=== PATIENT | female | born 1945 | race Caucasian/White ===

== ENCOUNTER 2018-03-23 10:21 | Inpatient (IN) | payer OTHER ==
[~2018-03-23] VITALS: Ht 160 cm; Wt 65.3 kg
[2018-03-23 10:21] VITALS: BP_SYST 159
--- NOTE | 2018-03-23 10:21 | NUR ---
BIB sq 64. Placed in room 02. Placed on monitor and storage bin tender, blood pressure machine and pulse oximeter. To gown for exam. Side rails up.
--- NOTE | 2018-03-23 10:25 | NUR ---
Pt had syncopal episode at [facility] this morning. C/O abd pain and nausea. NS infusing to [facility] from medics. No vomiting. States that she wanted to get the dog out of the house before it got too hot because she was in bed all day yesterday and didn't take the dog out. Denies chest pain, denies shortness of breath. Denies headache.
--- NOTE | 2018-03-23 10:30 | NUR ---
Placed in room 2 . Placed on rn cardiac, blood pressure machine and pulse oximeter. To gown for exam. Side rails up.
--- NOTE | 2018-03-23 11:09 | NUR ---
ER Dr. Bains at bedside examining patient.
--- NOTE | 2018-03-23 11:27 | NUR ---
Off unit for radiology via [facility]. VSS. No acute distress. Pt given warm blanket, c/o being cold. Skin cool, dry.
--- NOTE | 2018-03-23 11:52 | NUR ---
Back from radiology, tolerated well.
--- NOTE | 2018-03-23 12:00 | NUR ---
urine sample collected and sent to lab; blood labs being drawn at bedside including BC x 2; pt apolinar; will continue to monitor
[2018-03-23 12:18] LABS: BILIRUBIN,URINE NEGATIVE (NEGATIVE); BLOOD, URINE NEGATIVE (NEGATIVE); CLARITY/URINE CLEAR (CLEAR); COLOR,URINE YELLOW (YELLOW); GLUCOSE,URINE NEGATIVE (NEGATIVE); KETONES,URINE NEGATIVE (NEGATIVE); LEUKOCYTE ESTERASE ,URINE 1+ (NEGATIVE); NITRITE, URINE NEGATIVE (NEGATIVE); PH,URINE 5.5 (5.0-8.0); PROTEIN URINE NEGATIVE (NEGATIVE); UROBILINOGEN,URINE 0.2 (0.2-1.0)
[2018-03-23 12:31] LABS: RBC,URINE 0-3 /HPF (0-3)
[2018-03-23 12:32] LABS: BACTERIA,URINE FEW /HPF (None Seen); BARBITURATE, URINE NEGATIVE (NEG <=200); BENZODIAZEPINE, URINE NEGATIVE (NEG <=150); CANNABINOID, URINE NEGATIVE (NEG <=50); COCAINE, URINE NEGATIVE (NEG <=150); METHAMPHETAMINES SCREEN,URINE NEGATIVE (NEG <=500); MUCUS,URINE None Seen /LPF (None Seen); OPIATE, URINE NEGATIVE (NEG <=100); PHENCYCLIDINE SCREEN,URINE NEGATIVE (NEG <=25); PROTHROMBIN TIME 9.9 SECS (9.5-12.5); UR TRICYCLIC ANTIDEPRESSANTS NEGATIVE (NEG <=300); URINE AMPHETAMINE NEGATIVE (NEG <=500); URINE METHADONE NEGATIVE (NEG <=200); URINE OXYCODONE SCREEN NEGATIVE (NEG <=100); URINE PROPOXYPHENE SCREEN NEGATIVE (NEG <=300); YEAST,URINE None Seen /HPF (None Seen)
[2018-03-23 12:33] LABS: ANION GAP 10 (5-15); CALCIUM 9.8 mg/dL (8.4-11.0); CHLORIDE 100 mmol/L (98-107); CREATININE 1.07 mg/dL (0.55-1.30); GLUCOSE 148 mg/dL (70-99); POTASSIUM 4.8 mmol/L (3.5-5.1); SODIUM SERUM 137 mmol/L (136-145); UREA NITROGEN, BLOOD 27 mg/dL (8-21)
[2018-03-23 12:38] LABS: ALANINE AMINOTRANSFERASE 20 U/L (12-78); ALBUMIN 3.8 g/dL (3.4-4.8); ASPARTATE AMINOTRANSFERASE 16 U/L (10-37); TOTAL BILIRUBIN 0.3 mg/dL (0.0-1.0)
[2018-03-23 13:24] LABS: HEMATOCRIT 27.7 % (36-48); HEMOGLOBIN 8.3 g/dL (12.0-16.0); MEAN CORPUSCULAR HEMOGLOBIN 18 pg (27-31); MEAN CORPUSCULAR HGB CONC 30 % (32-36); MEAN CORPUSCULAR VOLUME 61 fL (79.0-98.0); PLATELET COUNT (AUTO) 419 K/uL (130-430); RED BLOOD CELL COUNT(AUTO) 4.54 MIL/uL (4.2-6.2); WHITE BLOOD COUNT (AUTO) 11.8 K/uL (4.8-10.8)
--- NOTE | 2018-03-23 14:00 | NUR ---
Dr. Bains aware of elevated WBC and (+) leukocytes in UA; no orders at this time
[2018-03-23 14:10] LABS: BAND % (MANUAL) 1 % (0-6); EOSINOPHILS % (MANUAL) 1 % (0-7); LYMPHOCYTES % (MANUAL) 20 % (20-46); MONOCYTES % (MANUAL) 8 % (0-11)
[2018-03-23 14:11] LABS: BASOPHILS % (MANUAL) 0 % (0-2)
--- NOTE | 2018-03-23 15:00 | NUR ---
As per Dr. Bains, endorsed to Dr. Ross elevated WBC and (+) leukocytes in urine; no orders at this time; ok to transfer and admit pt to [facility]
[2018-03-23] MEDS ORDERED: INSU100V9 SUBCUT (15:06)
[2018-03-23] MEDS ORDERED: NPH,100V SUBCUT (15:06)
--- NOTE | 2018-03-23 15:15 | NUR ---
ADMISSION NOTE Received patient from ER via gurney. Patient admitted with diagnosis of anemia, cheat pain. Patient is awake, alert, oriented X 4. Patient oriented to hospital room, call light, toileting, pain management and safety-teach back done. Personal belongings checked and Belongings List documented. Call light within reach.
--- NOTE | 2018-03-23 15:20 | NUR ---
Patient will be admitted to care of Dr. Ross. Admitted to Telemetry unit. Will go to room 105A. Belongings list completed; medication reconcilliation completed. Summary report printed. Report given at bedside to JOEL Manriquez.
[2018-03-23 15:27] VITALS: BP_SYST 132
--- NOTE | 2018-03-23 16:00 | NUR ---
PT RECEIVED REPORT IS RECEIVED FROM ADMISSION NURSE AND CARE IS ENDORSED TO MYSELF. PT IS RECEIVED AWAKE, ALERT, AND ORIENTED X4. PT IS AMBULATORY AND STABLE. NO SIGNS OR SYMPTOMS OF DISTRESS OR SOB NOTED. PT DENIES ANY PAIN. VS ARE STABLE. WHITE BOARD IS UPDATED, CALL LIGHT SHOWN HOW TO USE. CURRENT NEEDS ARE MET. BED IS AT LOWEST POSITION, CALL LIGHT WITHIN REACH, THREE SIDE RAILS UP, BED ALARM IS ON. WILL CONTINUE TO MONITOR.
--- NOTE | 2018-03-23 18:48 | NUR ---
CLOSING NOTE PT IS AWAKE AND ALERT. NO SIGNS OR SYMPTOMS OF DISTRESS OR SOB NOTED. PT DENIES ANY PAIN. CURRENT NEEDS ARE MET. BED IS AT LOWEST POSITION, CALL LIGHT WITHIN REACH, THREE SIDE RAILS UP, BED ALARM IS ON. WILL CONTINUE TO MONITOR UNTIL CARE AND REPORT IS GIVEN TO SHEARER HELPER NURSE.
--- NOTE | 2018-03-23 19:30 | NUR ---
BLOOD SUGAR TAKEN ORDERED. 235MG/DL.
[2018-03-23 19:35] VITALS: BP_SYST 136
--- NOTE | 2018-03-23 20:00 | NUR ---
INITIAL NOTES: PATIENT IN BED RESTING QUITELY AND WATCHING TV SHOWS. RE INSTRUCTED ABOUT SAFETY BY USING CALL LIGHT SYSTEM. BED ALARM ON FOR SAFETY.ENDORSED WITH NO IV LINE.ASSISTED TO BATHROOM TO VOID. SINUS RHYTHM . VITAL SIGNS TAKEN AND RECORDED. WILL MONITOR CLOSELY.BED IN LOW POSITION.
[2018-03-23] MEDS: INSULIN REGULAR, HUMAN 100 UNITS/ML, 10 ML VIAL (novoLIN R) SUBCUT PRN (21:06)
--- NOTE | 2018-03-23 21:10 | NUR ---
MEDS ADMIN: LEVIMIR 12 UNITS AND REGULAR INSULIN GIVEN PER SLIDING SCALE.
--- NOTE | 2018-03-23 21:15 | NUR ---
NEW IV LINE INSERTED TO LEFT AC #22 GAUGE BY AUTOMATIC HEAD SAWYER DIDA.
--- NOTE | 2018-03-23 21:30 | NUR ---
BED ALARM ON ,PATIENT GOT UP BY HERSELF TO BATHROOM. ASSISTED THEN REMIND HER TO CALL BEFORE GETTING UP.
--- NOTE | 2018-03-23 23:30 | NUR ---
ASSISTED TO BATHROOM TO VOID. BED ALARM ON. REINSTRUCTED TO CALL USING CALL PARDO.
[2018-03-24 00:04] VITALS: BP_SYST 112
--- NOTE | 2018-03-24 00:30 | NUR ---
PATIENT SLEEPING. DENIES SOB NOR DIZZINESS. BREATHING PATTER REGULAR.
--- NOTE | 2018-03-24 01:30 | NUR ---
BLOOD SUGAR THIS TIME IS 62MG/DL. PATIENT FEELS LITTLE DIZZY. D50 IV ORDERED GIVEN . IV WITH GOOD BLOOD RETURN.
[2018-03-24] MEDS: DEXTROSE 50% JECT 50 ML DISP.SYRIN IVP PRN ×2 (01:33→06:17)
--- NOTE | 2018-03-24 02:33 | NUR ---
Blood sugar check reassessment done. Patient's blood glucose is 169 mg/dL.
--- NOTE | 2018-03-24 04:30 | NUR ---
PATIENT SLEEPING DURING ROUNDS.
--- NOTE | 2018-03-24 06:05 | NUR ---
ACCU CHECK RESULT 63MG/DL. D50 IV GIVEN AND GAVE ORANGE JUICE. INSTRUCTED TO STAY IN BED SINCE BLOOD SUGAR IS LOW.
--- NOTE | 2018-03-24 07:30 | NUR ---
Initial notes: Patient on bed awake, alert and oriented. Stable. I.V. access patent. Safety measures in placed. Call light within reach. Report received at bedside.
--- NOTE | 2018-03-24 07:35 | NUR ---
CLOSING: BLOOD SUGAR RE CHECKED 221. REPORTED TO AM RN.NO ACUTE CARDIOPULMONARY DISTRESS . CALL LIGHT HAS BEEN NEARBY.BED IN LOW POSITION. ASSISTED TO BATHROOM. BED ALARM ON.
[2018-03-24 07:48] LABS: TOTAL IRON BIND. CAPACITY 457 ug/dL (250-450)
[2018-03-24 07:57] LABS: THYROID STIMULATING HORMONE 3.05 uIu/mL (0.36-3.74)
[2018-03-24 08:00] VITALS: BP_SYST 113
--- NOTE | 2018-03-24 09:34 | NUR ---
rounds: patient sleeping. no distress noted.
--- NOTE | 2018-03-24 09:52 | NUR ---
CONSULTATION CALLED REASON FOR CONSULTATION:SYNCOPE WAS CONSULT CALLED?Y PERSON WHO WAS NOTIFIED:MORRIS CONSULTING PHYSICIAN:GURWINDER [place] [employer] SPECIALTY:[employer] PHONE NUMBER:[phone] ORDERING PHYSICIAN:JENNIFER DON
[2018-03-24 10:26] LABS: HEMOGLOBIN 7.5 g/dL (12.0-16.0); MEAN CORPUSCULAR HEMOGLOBIN 18 pg (27-31); MEAN CORPUSCULAR VOLUME 61 fL (79.0-98.0)
[2018-03-24 10:31] LABS: HEMATOCRIT 25.4 % (36-48); MEAN CORPUSCULAR HGB CONC 30 % (32-36); PLATELET COUNT (AUTO) 371 K/uL (130-430); RED BLOOD CELL COUNT(AUTO) 4.16 MIL/uL (4.2-6.2); RED CELL DISTRIBUTION WIDTH 20.6 % (9.0-15.0); WHITE BLOOD COUNT (AUTO) 9.3 K/uL (4.8-10.8)
[2018-03-24] MEDS: INSULIN REGULAR, HUMAN 100 UNITS/ML, 10 ML VIAL (novoLIN R) SUBCUT PRN (12:01)
[2018-03-24 12:52] VITALS: BP_SYST 146
--- NOTE | 2018-03-24 13:00 | NUR ---
rounds: patient on bed resting. no distress noted.
[2018-03-24 14:49] LABS: ATYPICAL LYMPHOCYTES % 0 % (0-0); BAND % (MANUAL) 2 % (0-6); BASOPHILS % (MANUAL) 1 % (0-2); EOSINOPHILS % (MANUAL) 3 % (0-7); LYMPHOCYTES % (MANUAL) 14 % (20-46); MONOCYTES % (MANUAL) 10 % (0-11)
--- NOTE | 2018-03-24 16:00 | NUR ---
rounds: informed patient she is being discharge. she said she will call someone to pick her up.
[2018-03-24 16:54] VITALS: BP_SYST 136
[2018-03-24 17:30] VITALS: BP_SYST 136
--- NOTE | 2018-03-24 18:51 | NUR ---
Closing notes: Patient on bed calling for neighbor to pick her up. Stable. Needs attended. Safety measures in placed. Call light within reach. Report will be given to manufacturing supervisor 2nd shift.
--- NOTE | 2018-03-24 19:15 | NUR ---
OPENING NOTES RECEIVED PATIENT IN BED [id number]. DENIES ANY PAIN AT THIS TIME. BREATHING UNLABORED ON ROOM AIR. PATIENT FOR DISCHARGE TO HOME TONIGHT. AWAITING FOR RIDE/ORE CHARGER FROM A FRIEND. VITAL SIGNS STABLE. DISCHARGE INSTRUCTIONS PROVIDED. PATIENT VERBALIZES UNDERSTANDING.
[2018-03-24 20:00] VITALS: BP_SYST 132
--- NOTE | 2018-03-24 20:12 | NUR ---
PATIENT DISCHARGED PATIENT WHEELED OUT TO LOBBY BY CHARGE NURSE NIDIA FOR SERVICENOW ADMINISTRATOR BY TAXI.
[2018-03-25 12:07] LABS: FOLATE (FOLIC ACID) 7.2 ng/mL (>3.0)
== END 2018-03-24 21:10 | disposition home or self-care (01) | DRG 312 ==
LOC: SED 10:21 → STU 14:52
PROVIDERS: ADMIT Internal Medicine Hospice and Palliative Medicine; ATTEND Internal Medicine Hospice and Palliative Medicine
DX: R55 Syncope and collapse (principal); N39.0 Urinary tract infection, site not specified; D50.9 Iron deficiency anemia, unspecified; E11.9 Type 2 diabetes mellitus without complications; I10 Essential (primary) hypertension; Z82.0 Family history of epilepsy and other diseases of the nervous system; Z80.9 Family history of malignant neoplasm, unspecified
CPT/HCPCS: 36415; 70450-TC; 71045; 80053; 80307; 81000-TC; 82607; 82728; 82746; 82962; 83540-TC; 83550-TC; 83605; 83615-TC; 84443-TC; 84484; 85007; 85027; 85610-TC; 93005; 93306; 99285

== ENCOUNTER 2019-04-09 05:45 | Day surgery (SDC) | payer MEDICARE ==
[~2019-04-09] VITALS: Ht 162.6 cm; Wt 61.2 kg
[~2019-04-09 05:45] MED LIST: INSU100V9 SUBCUT; NPH,100V SUBCUT
[2019-04-09] MEDS ORDERED: CEFAZOLIN SOD 1 GM in D5W 50 ML IV ONE (07:30)
[2019-04-09] MEDS ORDERED: MIDAZOLAM HCL 5 MG/5 ML VIAL IVP ONE (07:40)
[2019-04-09] MEDS ORDERED: NS 1000 ML IV.SOLN IV ONE (07:40)
[2019-04-09] MEDS ORDERED: POLYMYXIN 500,000/BACIT.10,000 UNITS in NS IRR 1 L IR ONE (07:40)
[2019-04-09] MEDS ORDERED: BUPIVACAINE /PF 0.25% 30 ML VIAL INJ ONE (07:40)
[2019-04-09] MEDS ORDERED: SEVOFLURANE 15 MIN GAS INH ONE (07:40)
[2019-04-09] MEDS ORDERED: ONDANSETRON HCL 4 MG/2 ML VIAL IVP ONE (07:40)
[2019-04-09] MEDS ORDERED: NS IRRIG SOLN 1000 ML IR ONE (07:40)
[2019-04-09] MEDS ORDERED: fentaNYL CITRATE/PF 100 MCG/2 ML AMP IVP ONE (07:40)
[2019-04-09] MEDS ORDERED: HEPARIN SODIUM, PORCINE 10,000 UNITS/ 10 ML VIAL MC ONE (07:40)
[2019-04-09] MEDS ORDERED: PROPOFOL 200MG/ 20ML VIAL (DIPRIVAN) IV ONE (07:40)
[2019-04-09] MEDS ORDERED: LR 1,000 ML IV SCH (08:26)
[2019-04-09] MEDS ORDERED: MORPHINE 4 MG/ML INJ. SYRINGE IVP PRN ×3 (08:30)
[2019-04-09] MEDS: D5/0.45 NS 1,000 ML IV SCH ×2 (08:42→18:42)
[2019-04-09] MEDS ORDERED: HYDROmorphone 1 MG INJ. 1 MG/ML AMPUL IVP PRN (08:45)
[2019-04-09] MEDS ORDERED: HYDROcodone/ACETAMIN 5-325 MG TAB (NORCO/ VICODIN) PO PRN ×2 (08:45)
[2019-04-09 17:49] VITALS: BP_SYST 143
[2019-04-09 21:37] VITALS: BP_SYST 157
[2019-04-10 01:24] VITALS: BP_SYST 175
[2019-04-10] MEDS: D5/0.45 NS 1,000 ML IV SCH (04:42)
[2019-04-10 08:00] VITALS: BP_SYST 119
[2019-04-10 12:17] VITALS: BP_SYST 115
[2019-04-10 12:32] VITALS: BP_SYST 133
== END 2019-04-10 14:00 | disposition home or self-care (01) ==
LOC: SDS 05:45 → SMU 05:45 → STU 17:25 → SDS 04-10 14:00
PROVIDERS: ATTEND Colon & Rectal Surgery
DX: C18.9 Malignant neoplasm of colon, unspecified (principal); C77.2 Secondary and unspecified malignant neoplasm of intra-abdominal lymph nodes; E11.22 Type 2 diabetes mellitus with diabetic chronic kidney disease; N18.3 Chronic kidney disease, stage 3 (moderate); E11.42 Type 2 diabetes mellitus with diabetic polyneuropathy; E78.5 Hyperlipidemia, unspecified; Z87.891 Personal history of nicotine dependence
CPT/HCPCS: 36561; 71045; 77001; 82962; C1788; J0690; J1644; J2250; J2405; J2704; J3010; J3490; J7030; J7060; J7120; 76000

== ENCOUNTER 2023-01-11 11:05 | Outpatient (CLI) | payer OTHER | END 2023-01-11 20:55 | disposition home or self-care (01) | LOC: SMI 11:05 | PROVIDERS: ATTEND Psychiatry & Neurology Neurology | DX: I63.81 Other cerebral infarction due to occlusion or stenosis of small artery (principal); G31.89 Other specified degenerative diseases of nervous system; J34.1 Cyst and mucocele of nose and nasal sinus | CPT/HCPCS: 70551 ==